=== PATIENT | female | born 1950 | race Hispanic/Latino ===

== ENCOUNTER 2017-02-12 06:43 | Day surgery (SDC) | payer MEDICARE ==
[2017-02-02 10:29] VITALS: BMI 38.3
--- NOTE | 2017-02-12 07:05 | CP.PCM.HP ---
History of Present Illness - History of Present Illness History of Present Illness: see paper H&P in chart. Present on Admission - Present on Admission Any Indicators Present on Admission: No Past Patient History - Infectious Disease Hx of Infectious Diseases: None - Past Social History Smoking Status: Unknown If Ever Smoked - CARDIAC Hx Pacemaker: No - NEUROLOGICAL Hx Paralysis: No - HEMATOLOGICAL/ONCOLOGICAL Hx Blood Transfusions: No - MUSCULOSKELETAL/RHEUMATOLOGICAL Hx Musculoskeletal Disorders: No - PSYCHIATRIC Hx Substance Use: No - SURGICAL HISTORY Hx Surgeries: Yes - ANESTHESIA Hx Anesthesia Reactions: No Hx Malignant Hyperthermia: No Meds Allergies/Adverse Reactions: Allergies Allergy/AdvReac Type Severity Reaction Status Date / Time acetaminophen [From Tylenol] AdvReac Severe PALPITATION Verified 02/02/17 10:31 S
[2017-02-12] MEDS ORDERED: Liquid Adhesive TOP ONE (07:17)
[2017-02-12] MEDS ORDERED: Bupivacaine 0.5% Inj(30mL) ONE (07:17)
[2017-02-12] MEDS ORDERED: Lidocaine 2% Inj (20ml) ONE (07:23)
[2017-02-12 07:31] VITALS: O2SAT 99
[2017-02-12] MEDS ORDERED: Midazolam 2 MG/2 ML VIAL ONE (07:39)
[2017-02-12] MEDS ORDERED: Propofol 10 mg/ml Inj (20 ML) ONE ×2 (07:39→08:27)
[2017-02-12] MEDS ORDERED: Dexamethasone 4 mg/1 ml ONE (08:42)
[2017-02-12] MEDS ORDERED: HYDROmorphone 0.5 mg/0.5 ml ISec IVP PRN (08:51)
[2017-02-12] MEDS ORDERED: Sodium Chloride 0.9% 1,000 ML IV SCH (09:00)
--- NOTE | 2017-02-12 09:00 | PCM.SURG1 ---
Surgeon's Initial Post Op Note - Surgeon's Notes Surgeon: Dr. Veronique Palafox Biztalk Architect: Dr. Cherrie Nagy PGY-2 Type of Anesthesia: IV Sedation, Local Anesthesia Administered By: Dr. Brewer Pre-Operative Diagnosis: painful exostosis right midfoot Operative Findings: see operative report Post-Operative Diagnosis: same Operation Performed: exostectomy right midfoot Specimen/Specimens Removed: exostosis bone tarso-metatarsal Estimated Blood Loss: EBL {In ML}: 1 Blood Products Given: N/A Drains Used: No Drains Post-Op Condition: Good Date of Surgery/Procedure: 02/12/17 Time of Surgery/Procedure: 07:30
--- NOTE | 2017-02-12 09:42 | RAD ---
PROCEDURE: Right Foot Radiographs. HISTORY: s/p right foot surgery COMPARISON: None. FINDINGS: BONES: Normal. No fracture. JOINTS: Normal. SOFT TISSUES: Normal. OTHER FINDINGS: There is a fragmented calcaneal spur on the plantar aspect of the calcaneus IMPRESSION: No acute findings
[2017-02-12 10:33] VITALS: PULSE 70; TEMP 97.9
[2017-02-12 10:34] VITALS: BP 137/61; RESP 18
--- NOTE | 2017-02-13 19:20 | PCM.OP ---
Operative Report - Operative Report Date of Surgery/Procedure: 02/12/17 Time of Surgery/Procedure: 07:30 Surgeon: Dr. Erick Palafox Grinder Needle Tip: Dr. Mercedes Nagy PGY-2 Anesthesia/Sedation: IV sedation + local Pre-Operative Diagnosis: painful exostosis right foot Post-Operative Diagnosis: painful exostosis right foot Indication for Surgery: The patient is a 66 year-old femalewith the above diagnoses. The patient has exhausted conservative treatment at this time and now requires surgical intervention. The patient signed the consent after careful explanation of risks, benefits, complication and alternatives for surgical procedure. No guarantees were given nor implied. NPO status was confirmed prior to taking pt to the OR. Operative Findings: The patient was brought to the operating room and placed on the operating room table in supine position. 1 g of Ancef IV givn to the patient in the OR. After induction of IV sedation, the patient received a total of 20 cc of 1:1 mixture of 0.5% Marcaine and 2% lidocaine plain in local block fashion to the right foot. Once local anesthesia was achieved, the right foot was then prepped and draped in usual sterile manner. Sterile tourniquet was then applied to the right ankle and esmarch was utilized to exsanguinate the patient's right foot. Pneumatic ankle tourniquet was then inflated to 225 mmHg and procedure began. Procedure: excision of exostosis of third tarso- metatarsal joint right foot. Attention was then drawn to the dorsal aspect of the right midfoot where a palpable dense alexander mass was encountered over the third tarso-metatarsal joint. A #15 blade was used to make a 4 cm linear incision directly over the bump. Care was taken to avoid all vital neurovascular structures and tendons. Bleeders were cauterized as needed. A combination of sharp and blunt dissection was used to dissect the subcutaneous tissues down to the level of the capsule. Using a fresh #15 blade, a linear incison was made through the capsule down the level of bone. Using a periosteal elevator and olea elevator, the periosteal layers was dissected away from the exostosis in question. A sharp osteotome and a mallet were then used to the resect the exostosis which was then passed from the field and sent for pathology. NExt, a rongeour and rasp were used to smooth all rough and sharp edges of the remaining bone surface. Next, sterile normal saline as used to copiously flush the incision site. #2-0 vircyl were used to repair the periosteal and capsular layers. #3-0 vicryl was used to closed subcutaneous layers. #4-0 monocryl was used to reapproximate the subcuticular layers in a running fashion. Steri strips were then applied. An additional 10 cc of 0.5% marcaine plain was injected to the incision site. The inicison was then dressed with DSD, kerlix and MELQUIADES wrap. Procedure/Operation Description: excision of exostosis of third tarso- metatarsal joint right foot Estimated Blood Loss: 1 Blood Replaced: none Sponge/Instrument Count: correct Drains: none Complications: none Discharge & Condition: The patient tolerated the anesthesia and procedure well and was escorted to the recovery room with vital signs stable and neurovascular status intact to the right foot. Pt is stable for discharge home and will follow up in the office with Dr. Veronique Palafox within one week.
== END 2017-02-12 11:30 | disposition home or self-care (01) ==
LOC: SDS 06:43
PROVIDERS: ATTEND Podiatrist
DX: M89.9 Disorder of bone, unspecified (principal); I10 Essential (primary) hypertension; E78.00 Pure hypercholesterolemia, unspecified
CPT/HCPCS: 28104; 73630; 88304; 88311; J0690; J1100; J1170; J1885; J2250; J2405; J2704; J3010; J7040; J7120

== ENCOUNTER 2018-01-17 11:18 | Emergency (ER) | payer MEDICARE ==
[2018-01-17 11:57] VITALS: BMI 36.5
[2018-01-17 12:17] VITALS: RESP 18; TEMP 98.4
--- NOTE | 2018-01-17 12:18 | ED PDOC ---
Arrival/HPI - General Chief Complaint: Dizziness/Lightheaded Time Seen by Provider: 01/17/18 12:12 Historian: Patient, Spouse - History of Present Illness Narrative History of Present Illness (Text): 01/17/18 1130 pt p/w + 6 months onset of left sided intermittent head discomfort and coughing ; pt states this month, the frequency of left sided head discomfort became more frequent and causing her alarm; pt states she would usually have 1 episode of pain per month, but this month, she has had 3 and today's pain was severe, > 10/ 10 pain; pt states when she has the head discomfort its on the left side, lasting < 10 seconds and causing her paralysis ? to her left face; pt states she also felt very dizzy with these headaches; pt states her dizziness is more room spinning (clockwise) and less lightheadedness; pt states no vision changes , no slurr speech, no neck pain, no fever/chills/sweats, no chest pain/ shortness of breath/palpitations, no abd pain, no n/v, no numbness/tingling, no urinary/bowel changes, no incontinence, no fall/trauma/sick contact, no travel; pt denied other complaints per pt's spouse, also noted ~ 6 months onset of dry intermittent coughing pt is here for further eval. PCP: Dr Goodwin pt is right hand dominate pt with hx of migraine headaches, last exacerbation was many years ago - seen neurologists in the past pt denied TIA/CVA hx pt denied cardiac hx Time/Duration: > month (6) Symptom Onset: Other (over 6 months) Symptom Course: Worsening Quality: Stabbing, Cramping Severity Level: Severe Activities at Onset: Rest Context: Home Past Medical History - Provider Review Nursing Documentation Reviewed: Yes - Travel History Have you recently traveled outside [place] w/in the past 3 mons?: No - Past History Past History: Non-Contributing - Infectious Disease Hx of Infectious Diseases: None - Reproductive Menopause: Yes Currently : No - Cardiac Hx Cardiac Disorders: Yes Hx Hypertension: Yes Hx Pacemaker: No - Neurological Hx Paralysis: No - Hematological/Oncological Hx Blood Transfusions: No - Musculoskeletal/Rheumatological Hx Musculoskeletal Disorders: No - Psychiatric Hx Emotional Abuse: No Hx Physical Abuse: No Hx Substance Use: No - Surgical History Hx Orthopedic Surgery: Yes Other/Comment: Bladder, ears - Anesthesia Hx Anesthesia Reactions: No Hx Malignant Hyperthermia: No - Suicidal Assessment Feels Threatened In Home Enviroment: No Family/Social History - Physician Review Nursing Documentation Reviewed: Yes Family/Social History: No Known Family HX Smoking Status: Unknown If Ever Smoked Hx Alcohol Use: No Hx Substance Use: No Hx Substance Use Treatment: No Allergies/Home Meds Allergies/Adverse Reactions: Allergies acetaminophen [From Tylenol] Adverse Reaction (Severe, Verified 01/17/18 12:02) PALPITATIONS Home Medications: Home Meds Medication Instructions Recorded Confirmed amLODIPine [Norvasc] 10 mg PO QAM 10/26/15 02/12/17 Calcium Carbonate/Vitamin D3 1 tab PO DAILY 02/02/17 02/12/17 [Caltrate 600 Plus D3 Tablet] Acetaminophen with Codeine 1 tab PO Q4H PRN 02/12/17 02/12/17 [Tylenol with Codeine No. 3 300 mg-30 mg] Review of Systems - Review of Systems Constitutional: Normal Eyes: Normal ENT: Normal Respiratory: Cough. absent: SOB Cardiovascular: Normal. absent: Chest Pain Gastrointestinal: Normal. absent: Abdominal Pain, Nausea, Vomiting Genitourinary Female: Normal Musculoskeletal: Normal Skin: Normal Neurological: Headache, Dizziness Endocrine: Normal Hemo/Lymphatic: Normal Psychiatric: Normal Physical Exam - Physical Exam Narrative Physical Exam (Text): 01/17/18 1130 General: alert/awake, GCS = 15, oriented x 3, resting in bed, mildly uncomfortable, cooperative, interactive; NAD Head: NC/AT EYE: PERRLA, EOMI, sclera anicteric, no nystagmus, no photophobia; visual field intact b/l Facial: WNL Oral: uvula/tongue are midline, no exudate/lesions, no drooling/stridor, no dysphonia; intact dentitions; moist oral mucosa NECK: intact ROM, no midline tenderness, no nuchal rigidity, no meningeal signs ; no step off Chest: CTA b/l, no w/r/r; no tachypenia, no accessory muscle use noted Cardiac: +S1, +S2, no m/r/r, no tachycardia Abdominal: +BS, soft/nd/nt, well nourished/obese patient; no masses/rebound/ guarding/rigidity; no gr's sign, no mcburney's point tenderness Extremities: intact ROM, strength 5/5 grossly intact in all limbs, neurovasc intact b/l; + ambulatory; reflex +2/2; no pitting edema/swelling b/l; no Reilly' s sign b/l BACK: no step off, no midline tenderness, NO crepitus, no gross deformities noted; Intact ROM SKIN: cap refill < 1 sec, no ulcerations, no petechiae, no rashes; no gross pallor noted NEURO: CNII-XII WNL, no facial asymmetries, no slurr speech, oriented x 3 NIH stroke scale ~ 0 Psych: normal insight, normal affect; follows command with ease Vital Signs Reviewed: Yes Vital Signs Temp Pulse Resp BP Pulse Ox 01/17/18 11:19 98.4 F 80 18 144/76 99 Temperature: Afebrile Blood Pressure: Hypertensive (mild) Pulse: Regular Respiratory Rate: Normal Appearance: Positive for: Well-Appearing, Non-Toxic, Uncomfortable. No: Ill- Appearing, Unkept Pain Distress: None Mental Status: Positive for: Alert and Oriented X 3 - Systems Exam Head: Present: Atraumatic, Normocephalic Medical Decision Making ED Course and Treatment: 01/17/18 1130 Impression: left headache i have consider all the differential diagnosis regarding pt's chief medical complaints/clinical findings, including but are not limited to: left headache/ dizziness; cough x 6 months, worsening today A/P: left headache/dizziness, ? cough x 6months - xray - ct - labs - supportive care - observe/reevaluation 01/17/18 1345 pt is doing well pt denied any headaches pt remained comfortable pt remained at baseline mental status NIH stroke scale ~ 0 vital signs WNL 200pm pt is made aware of her medical results pt is encouraged fluids pt will follow up as directed pt will be discharged home Re-evaluation Time: 14:10 Reassessment Condition: Improved - Lab Interpretations Lab Results: 01/17/18 12:18 01/17/18 12:18 Lab Results 01/17/18 12:18: Sodium 146, Potassium 3.9, Chloride 106, Carbon Dioxide 27, Anion Gap 16, BUN 11, Creatinine 0.6 L, Est GFR ( Amer) > 60, Est GFR ( Non-Af Amer) > 60, Random Glucose 148 H, Calcium 9.3, Total Bilirubin 0.7, AST 27, ALT 31, Alkaline Phosphatase 72, Total Protein 7.0, Albumin 3.8, Globulin 3.3, Albumin/Globulin Ratio 1.2 01/17/18 12:18: WBC 6.5, RBC 4.58, Hgb 12.9, Hct 38.1, MCV 83.2, MCH 28.2, MCHC 33.9, RDW 12.7, Plt Count 215, MPV 9.7, Gran % 55.4, Lymph % (Auto) 33.6, [place] % (Auto) 8.1 H, Eos % (Auto) 2.6, Baso % (Auto) 0.3, Gran # 3.61, Lymph # (Auto ) 2.2, [place] # (Auto) 0.5, Eos # (Auto) 0.2, Baso # (Auto) 0.02, ESR 20 01/17/18 12:00: Urine Color Yellow, Urine Appearance Clear, Urine pH 5.5, Ur Specific [place] >= 1.030, Urine Protein Trace H, Urine Glucose (UA) Negative, Urine Ketones Negative, Urine Blood Negative, Urine Nitrate Negative, Urine Bilirubin Small H, Urine Urobilinogen 0.2, Ur Leukocyte Esterase Small H, Urine RBC 1 - 3, Urine WBC 10 - 15, Ur Epithelial Cells Many, Urine Bacteria Many, Urine Other Uyeast I have reviewed the lab results: Yes Interpretation: Abnormal lab values (mildly elevated GLUC) - RAD Interpretation Narrative RAD Interpretations (Text): 01/17/18 14:10 PROCEDURE: CT HEAD WITHOUT CONTRAST. HISTORY: left sided headache x 6 months, worse x 1 d COMPARISON: None available. TECHNIQUE: Axial computed tomography images were obtained through the head/brain without intravenous contrast. Radiation dose: Total exam DLP = 873.41 mGy-cm. This CT exam was performed using one or more of the following dose reduction techniques: Automated exposure control, adjustment of the mA and/or kV according to patient size, and/or use of iterative reconstruction technique. FINDINGS: HEMORRHAGE: No intracranial hemorrhage. BRAIN: No mass effect or edema. No atrophy. Mild chronic periventricular white matter lucency with patchy deep and subcortical white matter lucency, consistent with microvascular ischemic change. No evidence of acute infarct. VENTRICLES: Unremarkable. No hydrocephalus. CALVARIUM: Unremarkable. PARANASAL SINUSES: Unremarkable as visualized. No significant inflammatory changes. MASTOID AIR CELLS: Unremarkable as visualized. No inflammatory changes. OTHER FINDINGS: None. IMPRESSION: No intracranial mass, hemorrhage or evidence of acute infarct. Mild chronic white matter ischemic change. -- HISTORY: cough COMPARISON: 02/02/2017 TECHNIQUE: Chest PA and lateral FINDINGS: LUNGS: No active pulmonary disease. PLEURA: No significant pleural effusion identified. No pneumothorax apparent. CARDIOVASCULAR: Normal. OSSEOUS STRUCTURES: No significant abnormalities. VISUALIZED UPPER ABDOMEN: Normal. OTHER FINDINGS: None. IMPRESSION: No active disease. Radiology Orders: 01/17/18 12:13 HEAD W/O CONTRAST [CT] Stat 01/17/18 12:14 CHEST TWO VIEWS (PA/LAT) [RAD] Stat Strategy Manager: Radiologist - Medication Orders Current Medication Orders: Discontinued Medications Ketorolac Tromethamine (Toradol) 30 mg IVP STAT STA Stop: 01/17/18 12:16 Last Admin: 01/17/18 12:25 Dose: Not Given Non-Admin Reason: Patient Refused MAR Pain Assessment Document 01/17/18 12:25 GMD (Rec: 01/17/18 12:26 GMD [id number]) Presence of Pain Presence of Pain No Disposition/Present on Arrival - Present on Arrival Any Indicators Present on Arrival: No History of DVT/PE: No History of Uncontrolled Diabetes: No Urinary Catheter: No History of Decub. Ulcer: No History Surgical Site Infection Following: None - Disposition Have Diagnosis and Disposition been Completed?: Yes Diagnosis: Headache, Dizziness Disposition: HOME/ ROUTINE Disposition Time: 14:11 Patient Plan: Discharge Condition: STABLE Discharge Instructions (ExitCare): Headache, Adult, Dizziness, Nonvertigo, (DC) Print Language: MALAGASY Additional Instructions: Make sure to see your doctor in 1-2 days DRINK PLENTY OF FLUIDS take your medications as prescribed RETURN TO ED IF worse pain, cant breath, persistent vomiting, high fever >101- 102 for hours, altered behavior, slurr speech, facial changes, focal weakness ( arm/leg or both), unable to urinate, heavy/persistent bleeding, passing out, chest pain, or other medical emergencies Prescriptions: Ibuprofen [Motrin] 600 mg PO QID PRN #30 tab PRN Reason: Pain, Moderate (4-7) Metoclopramide HCl [Reglan] 10 mg PO TID PRN #30 tablet PRN Reason: Nausea/Vomiting Referrals: Nydia Horn MD [Staff Provider] - Follow up with primary Kandi Bee MD [Staff Provider] - Follow up with primary [facility] [place] [Outside] - Follow up with primary [facility] [Outside] - Follow up with primary [facility] [Outside] - Follow up with primary Forms: [employer] (Irish), WORK NOTE
[2018-01-17 12:40] LABS: ALB/GLOB RATIO 1.2 (1.1-1.8); ALBUMIN 3.8 g/dL (3.0-4.8); ALT/SGPT 31 U/L (7-56); AST/SGOT 27 U/L (14-36); BLOOD UREA NITROGEN 11 mg/dL (7-21); CALCIUM 9.3 mg/dL (8.4-10.5); GFR AFRICAN-AMERICAN > 60; GFR NON-AFRICAN AMERICAN > 60
[2018-01-17 12:49] LABS: PH,URINE 5.5 (4.7-8.0); URINE BILIRUBIN SMALL (NEGATIVE); URINE BLOOD NEGATIVE (NEGATIVE); URINE GLUCOSE (UA) NEGATIVE (NEGATIVE); URINE LEUKOCYTE ESTERASE SMALL Leu/uL (NEGATIVE); URINE PROTEIN TRACE mg/dL (<30 mg/dL); URINE UROBILINOGEN 0.2 E.U./dL (<1 E.U./dL)
[2018-01-17 12:49] LABS: BASO # 0.02 K/mm3 (0.0-2.0); BASO % 0.3 % (0.0-3.0); EOS # 0.2 (0.0-0.7); EOS % 2.6 % (1.5-5.0); GRAN # 3.61 (1.4-6.5); GRAN % 55.4 % (50.0-68.0); HEMOGLOBIN 12.9 g/dL (12.0-16.0); LYMPH # 2.2 (1.2-3.4); LYMPH % 33.6 % (22.0-35.0); MEAN CELL VOLUME 83.2 fl (80.0-105.0); MEAN CORPUSCULAR HEMOGLOBIN 28.2 pg (25.0-35.0); MEAN CORPUSCULAR HGB CONC 33.9 g/dl (31.0-37.0); MEAN PLATELET VOLUME 9.7 fl (7.0-11.0); MONO # 0.5 (0.1-0.6); MONO % 8.1 % (1.0-6.0); RBC 4.58 10^6/uL (3.5-6.1); RED CELL DISTRIBUTION WIDTH 12.7 % (11.5-14.5); WHITE BLOOD COUNT 6.5 10^3/ul (4.5-11.0)
[2018-01-17 12:51] LABS: URINE APPEARANCE CLEAR (CLEAR); URINE COLOR YELLOW (YELLOW)
[2018-01-17 13:04] LABS: URINE BACTERIA MANY (NEG); URINE EPITHELIAL CELLS MANY /hpf (0-5)
--- NOTE | 2018-01-17 13:33 | CT ---
PROCEDURE: CT HEAD WITHOUT CONTRAST. HISTORY: left sided headache x 6 months, worse x 1 d COMPARISON: None available. TECHNIQUE: Axial computed tomography images were obtained through the head/brain without intravenous contrast. Radiation dose: Total exam DLP = 873.41 mGy-cm. This CT exam was performed using one or more of the following dose reduction techniques: Automated exposure control, adjustment of the mA and/or kV according to patient size, and/or use of iterative reconstruction technique. FINDINGS: HEMORRHAGE: No intracranial hemorrhage. BRAIN: No mass effect or edema. No atrophy. Mild chronic periventricular white matter lucency with patchy deep and subcortical white matter lucency, consistent with microvascular ischemic change. No evidence of acute infarct. VENTRICLES: Unremarkable. No hydrocephalus. CALVARIUM: Unremarkable. PARANASAL SINUSES: Unremarkable as visualized. No significant inflammatory changes. MASTOID AIR CELLS: Unremarkable as visualized. No inflammatory changes. OTHER FINDINGS: None. IMPRESSION: No intracranial mass, hemorrhage or evidence of acute infarct. Mild chronic white matter ischemic change.
--- NOTE | 2018-01-17 13:33 | RAD ---
HISTORY: cough COMPARISON: 02/02/2017 TECHNIQUE: Chest PA and lateral FINDINGS: LUNGS: No active pulmonary disease. PLEURA: No significant pleural effusion identified. No pneumothorax apparent. CARDIOVASCULAR: Normal. OSSEOUS STRUCTURES: No significant abnormalities. VISUALIZED UPPER ABDOMEN: Normal. OTHER FINDINGS: None. IMPRESSION: No active disease.
[2018-01-17 14:22] VITALS: BP 134/66; PULSE 76; O2SAT 98
== END 2018-01-17 14:23 | disposition home or self-care (01) ==
LOC: ED 11:18
DX: R51 Headache (principal); R42 Dizziness and giddiness; I10 Essential (primary) hypertension

== ENCOUNTER → 2018-10-11 | Outpatient (CLI) | payer MEDICARE | LOC: PAT 08:41 ==

== ENCOUNTER 2018-10-24 06:22 | Outpatient (CLI) | payer MEDICARE | END 2018-10-24 06:23 | disposition home or self-care (01) | LOC: CARDIO 06:22 | DX: R94.31 Abnormal electrocardiogram [ECG] [EKG] (principal); I10 Essential (primary) hypertension ==

== ENCOUNTER 2018-11-07 06:28 | Day surgery (SDC) | payer MEDICARE ==
[2018-10-24 09:23] VITALS: BMI 36.6
[2018-11-07] MEDS ORDERED: Propofol 10 mg/ml Inj (20 ML) ONE ×4 (07:27→09:32)
[2018-11-07] MEDS ORDERED: Midazolam 2 MG/2 ML VIAL ONE (07:27)
[2018-11-07] MEDS ORDERED: Lidocaine 1% 5ml Abboject ONE (07:28)
[2018-11-07] MEDS ORDERED: Dexamethasone 20 mg / 5 ml Inj ONE (07:36)
[2018-11-07] MEDS ORDERED: Lidocaine 1% Inj (20ml) ONE (07:37)
[2018-11-07] MEDS ORDERED: Liquid Adhesive TOP ONE (07:37)
[2018-11-07] MEDS: Bupivacaine 0.5% 50 ML IJ ONE ×2 (07:55→09:30)
[2018-11-07] MEDS ORDERED: HYDROmorphone 0.5 mg/0.5 ml ISec IVP PRN (09:42)
[2018-11-07] MEDS ORDERED: Lactated Ringer's 1,000 ML IV SCH (09:45)
--- NOTE | 2018-11-07 09:51 | PCM.SURG1 ---
Surgeon's Initial Post Op Note - Surgeon's Notes Surgeon: DR. Erick Palafox. DPM Foam Cutting Supervisor: Dr. Karri Dow.DPM/PGY1 Type of Anesthesia: IV Sedation, Local Anesthesia Administered By: Dr. Lr Pre-Operative Diagnosis: 1- Painful left midfoot tarsal exostosis. 2- Hallux valgus deformity of the left 1st toe. Operative Findings: See Dictation. Materials: 2 orthosorb pins, 2-0 Vicryl, 3-0 Vicryl, 5-0 monocryl, Masazole. Injectables: - 20 22 of 1:1 mixture of lidocaine 1% plain and marcaine 0.5% plain. - 10 cc of marcaine 0.5% plain. - 12 mg of dexamethasone. Post-Operative Diagnosis: 1- Painful left midfoot tarsal exostosis. 2- Hallux valgus deformity of the left 1st toe. Operation Performed: - Ostectomy and excision of letf midfoot tarsal bones exostosis. - Shaan Randolph Bunionectomy. Specimen/Specimens Removed: Excised bones and soft tissue of the left foot bunionectomy and exostectomy. Estimated Blood Loss: EBL {In ML}: 0 Blood Products Given: N/A Drains Used: No Drains Post-Op Condition: Good Date of Surgery/Procedure: 11/07/18 Time of Surgery/Procedure: 09:53
[2018-11-07 11:06] VITALS: BP 124/60; PULSE 73; RESP 18; TEMP 98; O2SAT 99
--- NOTE | 2018-11-07 11:11 | RAD ---
Date of service: 11/07/2018 PROCEDURE: Left Foot Radiographs. HISTORY: S/P L foot exostectomy and bunionectomy. COMPARISON: None. TECHNIQUE: 3 views obtained. FINDINGS: BONES: Osteotomy changes are seen in the neck of the 1st metacarpal. There is anatomic alignment. There are no prior studies for comparison JOINTS: Degenerative changes are seen in the interphalangeal joints SOFT TISSUES: Normal. OTHER FINDINGS: Calcaneal spurs are seen IMPRESSION: Osteotomy changes are seen in the neck of the 1st metacarpal. There is anatomic alignment. There are no prior studies for comparison
--- NOTE | 2018-11-08 08:38 | OP ---
PROCEDURE DATE: 11/07/2018 PREOPERATIVE DIAGNOSES: 1. Painful left midfoot dorsal exostosis. 2. Hallux valgus deformity of the left first toe. POSTOPERATIVE DIAGNOSES: 1. Painful left midfoot dorsal exostosis. 2. Hallux valgus deformity of the left first toe. NAME OF THE PROCEDURE: 1. Exostectomy and excision of the left midfoot tarsal bone exostosis. 2. [place] bunionectomy. SURGEON: Erick Palafox DPM [place] DEVELOPER: Fabrizio Dow DPM, PGY-1. TYPE OF ANESTHESIA: IV sedation plus local anesthesia. ANESTHESIA ADMINISTERED BY: Dr. Lr. INDICATIONS: The patient is a 68-year-old female with above diagnosis. The patient has exhausted all the conservative treatments at this time and now requires surgical intervention. The patient signed the consent after careful explanation of risks, benefits, complications, and alternatives for surgical procedure. No guarantees were given nor implied. NPO status was confirmed prior to taking the patient to the OR. PREPARATION: The patient was brought to the operating room and placed on the operating table in a supine position. A time-out was performed for identification of the correct patient and procedure. After induction of IV sedation, injection total of 20 mL 1:1 mixture of lidocaine 1% plain and Marcaine 0.5% plain in an ankle block fashion to the left ankle. After confirming the local anesthesia status, the left lower extremity was then prepped and draped in a normal sterile manner and the procedure began. Ankle tourniquet was used during the procedure and set on 225 mmHg. DESCRIPTION OF PROCEDURE: 1. Exostectomy and excision of the left midfoot tarsal bone exostosis. Attention was then directed to the left midfoot where using a #15 blade, an about 3 cm linear incision was made to the dorsum of the left midfoot. The incision was then deepened through the subcutaneous tissue using sharp and blunt dissection with care being taken to identify and retract all the vital neurovascular structures. All bleeders were cauterized on left side. Then using olea elevator, the periosteum was partially freed off the dorsum of the three cuneiforms and navicular bone. Then using an osteotome and hammer, all the exostotic bone was excised down to satisfaction. Using bradford rasp, the bone surface was then rasped down to smoothness. The wound was then flushed with copious amount of sterile normal saline and covered with gauze. 2. [place] bunionectomy. Attention was then directed to the distal aspect of the first ray at the level of the first MPJ where using a #15 blade, a linear incision was made medial to the extensor hallucis longus and then involved the contour of the deformity. The incision was then deepened through the subcutaneous tissue using sharp and blunt dissection was being taken to identify and retract all neurovascular structure. All bleeders were cauterized as necessary. At this time, lateral release was performed through the incision. A lateral capsulotomy was performed and then incision of the conjoint tendon of the abductor hallucis muscle was done lateral to the first midhead using [place] blade. Attention was then directed to the head of the first metatarsal bone where using a sagittal bone saw, excision of the medial eminence of the first metatarsal bone was done and down to satisfaction. Then, a plantar shelf was created using the sagittal bone saw from medial to lateral and then two osteotomies were created of the dorsal shelf running parallel, one of them is running parallel to the longitudinal axis of the first metatarsal bone and the other one is parallel to the first metatarsal bone head cartilage. When this was performed, a wedge of bone was removed between the two osteotomies and the lateral hinge was scissored. Once the lateral hinge had flexibility, the osteotomy was closed down in order to perform closing wedge osteotomy. One K-wire was then inserted to keep the distal fragment in position. Then, using two OrthoSorb rods, fixation of the distal fragment to the proximal one was done to achieve stability. The K-wire was then removed. The wound was then flushed with copious amount of sterile normal saline. The periosteum and the capsule were then reapproximated and coapted with a #3-0 Vicryl. Medial capsulorrhaphy was performed using a #3-0 Vicryl suture. Then, both wounds were closed as follows. The subcutaneous tissue reapproximated and coapted using a #2-0 Vicryl. The skin was reapproximated and coapted using a #5-0 Monocryl in a running subcuticular suture technique. Steri-Strips and Mastisol were then applied to both wounds. The left foot was then dressed with Adaptic, Betadine, 4 x 4 gauze, Kerlix and Coban. POSTOPERATIVE CONDITION: The patient tolerated the anesthesia and the procedure well and then escorted to the recovery room with vital signs stable and neurovascular status intact to the left lower extremity. The patient is to be partially bearing weight to the left lower extremity in a surgical shoe. The patient will follow up with Dr. Erick Palafox in his office within one week upon discharge home. FABRIZIO DOW DPM Erick Palafox DPM LILY
== END 2018-11-07 11:30 | disposition home or self-care (01) ==
LOC: SDS 06:28
PROVIDERS: ATTEND Podiatrist
DX: M20.12 Hallux valgus (acquired), left foot (principal); M89.9 Disorder of bone, unspecified; M21.612 Bunion of left foot
CPT/HCPCS: 28104; 28296; 73630; 88304; 88311; C1713; J0690; J1100; J1170; J2250; J2704; J3010; J7120 ×2